=== PATIENT | male | born 2005 | race Caucasian/White ===

== ENCOUNTER 2024-06-10 12:34 | Emergency (ER) | payer BC, SELFPAY ==
[2024-06-10 12:46] VITALS: BP 152/106; PULSE 78; TEMP 36.9; O2SAT 97; BMI 37.5
--- NOTE | 2024-06-10 12:58 | CT_ITS ---
The [address] [address] Patient Name: MICKEY VARGAS MRN: [id number] date: 2005 Sex: M Assigned Patient Location: ER Current Patient Location: ER Accession/Order Number: [id number] Exam Date: 06/10/2024 14:16 Report Date: 06/10/2024 14:26 At the request of: CAROLYN MARROQUIN DO Procedure: CT abdomen pelvis w con CT ABDOMEN AND PELVIS WITH CONTRAST COMPARISON: None CLINICAL DATA: Acute epigastric pain for the past week with nausea. Spiral images were obtained through the abdomen and pelvis following 100 mL of Omnipaque 300. This CT exam was performed using one or more following dose reduction techniques: Automated exposure control, adjustment of the mA and/or kV according to patient size, or use of iterative reconstruction technique. Limited cuts through the lung bases show no contributory findings. No calcified gallstones are visualized. Minimal focal fat is present within the liver near the fossa of the ligamentum teres. The spleen and pancreas show no acute findings. There is a 1 cm right adrenal nodule which may be an adenoma. There are symmetric renal nephrograms, without hydronephrosis. The abdominal aorta is normal caliber. There are tiny retroperitoneal and mesenteric lymph nodes. No free fluid is seen. There is a small amount of fluid within the stomach as well as the duodenum. There is borderline thickening of the wall the proximal duodenum and duodenitis is not excluded. The small bowel loops are normal caliber. A small amount of colonic stool is visualized. There is a tiny umbilical hernia containing fat. The bony structures are intact. Minor degenerative change is seen at the lumbosacral junction. Images through the pelvis show no appendiceal information. There are normal caliber small bowel loops. The distal colon is decompressed. No diverticular disease is noted. The urinary bladder shows no abnormalities for the degree of distention. No ascites is seen. CT/CT abdomen pelvis w con IMPRESSION: NO BOWEL OR URINARY TRACT OBSTRUCTION. BORDERLINE DUODENAL WALL THICKENING. CORRELATION IS RECOMMENDED TO ANY POSSIBILITY OF DUODENITIS. NO OTHER ACUTE FINDINGS. Impression dictated by: Ching Jeronimo M.D.06/10/2024 2:26 PM Dictation Location: [facility] Electronically authenticated by: [id number] Y Date: 06/10/2024 14:26
[2024-06-10] MEDS: 0.9 % SODIUM CHLORIDE 500 ML IV (13:27)
[2024-06-10 13:34] LABS: Basophils Absolute Auto 0.1 10^3/uL (0.0-0.1); Basophils Percent Auto 0.7 % (0.2-2.0); Eosinophils Absolute Auto 0.1 10^3/uL (0.0-0.7); Eosinophils Percent Auto 1.5 % (0.9-7.0); Hematocrit 46.1 % (42.0-54.0); Hemoglobin 16.8 g/dL (14.0-18.0); Immature Granulocytes Abs Auto 0.02 10^3/uL (0.00-0.03); Immature Granulocytes Pct Auto 0.2 % (0.0-0.5); Lymphocytes Absolute Auto 1.2 10^3/uL (1.2-3.8); Lymphocytes Percent Auto 14.1 % (20.5-60.0); Mean Corpuscular HGB Conc 36.4 g/dL (29.9-35.2); Mean Corpuscular Hemoglobin 30.3 pg (25.9-34.0); Mean Corpuscular Volume 83.1 fL (80.0-94.0); Mean Platelet Volume 9.4 fL (9.5-13.5); Monocytes Absolute Auto 0.6 10^3/uL (0.3-0.8); Monocytes Percent Auto 7.6 % (1.7-12.0); Neutrophils Absolute Auto 6.2 10^3/uL (1.4-6.5); Neutrophils Percent Auto 75.9 % (43.0-75.0); Platelet Count 372 10^3/uL (150-450); Red Blood Count 5.55 10^6/uL (4.70-6.10); Red Cell Distribution Width 11.5 % (11.0-15.0); White Blood Count 8.2 10^3/uL (4.0-11.0)
[2024-06-10 13:50] LABS: Influenza Virus A Antigen Negative; Influenza Virus B Antigen Negative; Internal Control Within Normal Limits
[2024-06-10 13:51] LABS: Internal Control Within Normal Limits; SARS-CoV-2 Ag NEGATIVE (NEGATIVE)
[2024-06-10 13:51] LABS: Alanine Aminotransferase 35 U/L (16-63); Albumin Level 4.4 g/dL (3.4-5.0); Alkaline Phosphatase 100 U/L (46-116); Anion Gap 17.1; Aspartate Amino Transferase 21 U/L (15-37); BUN Creatinine Ratio 8.6; Bilirubin Total 0.9 mg/dL (0.2-1.0); Calcium 9.5 mg/dL (8.5-10.1); Carbon Dioxide 26.8 mmol/L (21.0-32.0); Chloride 100 mmol/L (98-107); Estimated GFR (African America >60 (>=60 mL/min/1.73m^2); Estimated GFR (Non-African Ame >60 (>=60 mL/min/1.73m^2); Globulin 4.3 g/dL; Glucose 102 mg/dL (74-106); Potassium 3.9 mmol/L (3.5-5.1); Sodium 140 mmol/L (136-145); Total Protein 8.7 g/dL (6.4-8.2)
--- NOTE | 2024-06-10 14:16 | ED.GENADUL1 ---
HPI HPI - General Adult General Chief complaint: Nausea/Vomiting/Diarrhea Stated complaint: VOMITTING STOMACH PAINS Time Seen by Provider: 06/10/24 12:40 Source: patient Mode of arrival: walk-in Limitations: no limitations History of Present Illness HPI narrative: Patient presents to ED complaining of upper abdominal pain. He states that he has had an epigastric pain for about 5 days. He states last week he went to an urgent care and they said it was most likely gas after doing an x-ray. They told him to Take Gas-X. He has been taking pwyd-see-jkeqkkj medication for constipation and gas since then but has not really been able to have a good bowel movement. He said he had some watery diarrhea come out that was dark. No blood in the stool that he has noticed. No vomiting. He reports decreased appetite. He does not have a history of diabetes or peptic ulcer disease to his knowledge. He has not tried any pvjy-zvv-xemprbq Pepcid. Vital signs stable patient is resting comfortably in the bed in no acute distress. The pain does radiate up into the chest. No fevers. Related Data Previous Rx's ?Medication ?Instructions ?Recorded pantoprazole 40 mg tablet,delayed 40 mg PO DAILY 14 days #14 tabs 06/10/24 release (Protonix) Allergies Allergy/AdvReac Type Severity Reaction Status Date / Time No Known Drug Allergies Allergy Verified 06/10/24 12:50 Opioid HPI Opioid Management Most Recent Opioid Data: Last Pain Scale 4 06/10/24 12:55 06/10/24 Last ED Pain Assessment 06/10/24 12:55 Review of Systems ROS Status of ROS 10 or more systems reviewed and unremarkable except as noted in history and below PFSH PFSH Social History Little interest or pleasure in doing things: not at all Feeling down, depressed, or hopeless: not at all Exam Narrative Exam Narrative: Time Seen: [] Vital Signs: [Per nurse's notes.] General: [Alert] Skin: [Warm, dry, no rash.] Head: [Normocephalic, atraumatic.] Neck: [Supple, trachea midline.] Eye: [Pupils are equal, round and reactive to light, extraocular movements are intact, normal conjunctiva.] Ears, nose, mouth and throat: oral mucosa moist. Cardiovascular: [Regular rate and rhythm, no murmur.] Respiratory: [Lungs are clear to auscultation, respirations are non-labored, breath sounds are equal.] Chest wall: [No tenderness, no deformity.] Gastrointestinal: [Soft, mild epigastric tenderness, non distended, normal bowel sounds.] MSK: 5 out of 5 muscle strength x 4 extremities no calf pain or edema Lymphatics: [No lymphadenopathy.] Psychiatric: [Cooperative, appropriate mood & affect.] Neurological: [Alert and oriented to person, place, time, and situation, no focal neurological deficit observed.] Constitutional Vital Signs, click to edit/add: Last Vital Signs Temp 98.4 F 06/10/24 12:46 Pulse 78 06/10/24 12:46 Resp 18 06/10/24 12:46 BP 152/106 H 06/10/24 12:46 Pulse Ox 97 06/10/24 12:46 O2 Del Method Room Air 06/10/24 12:46 Course Vital Signs Vital signs: Vital Signs Temperature 98.4 F 06/10/24 12:46 Pulse Rate 78 06/10/24 12:46 Respiratory Rate 18 06/10/24 12:46 Blood Pressure 152/106 H 06/10/24 12:46 Pulse Oximetry 97 06/10/24 12:46 Oxygen Delivery Method Room Air 06/10/24 12:46 Temperature 98.4 F 06/10/24 12:46 Pulse Rate 78 06/10/24 12:46 Respiratory Rate 18 06/10/24 12:46 Blood Pressure 152/106 H 06/10/24 12:46 Pulse Oximetry 97 06/10/24 12:46 Oxygen Delivery Method Room Air 06/10/24 12:46 Medical Decision Making [facility] Narrative Medical decision making narrative: Patient's labs are negative for acute findings. Patient does have evidence of possible duodenitis on the CT scan. Patient was given a GI cocktail here to help with the pain. Patient will be started on 2-week course of Protonix. Please call the GI office to schedule a close follow-up appointment. Return to ED if worsening symptoms patient is comfortable with care plan for home Differential Diagnosis Differential Diagnosis: Constipation peptic ulcer disease duodenitis Lab Data Lab results reviewed: Yes I reviewed the patient's lab results Labs: Lab Results 06/10/24 06/10/24 Range/Units 13:10 13:25 WBC 8.2 (4.0-11.0) 10^3/uL RBC 5.55 (4.70-6.10) 10^6/uL Hgb 16.8 (14.0-18.0) g/dL Hct 46.1 (42.0-54.0) % MCV 83.1 (80.0-94.0) fL MCH 30.3 (25.9-34.0) pg MCHC 36.4 H (29.9-35.2) g/dL RDW 11.5 (11.0-15.0) % Plt Count 372 (150-450) 10^3/uL MPV 9.4 L (9.5-13.5) fL Neut % (Auto) 75.9 H (43.0-75.0) % Lymph % (Auto) 14.1 L (20.5-60.0) % [place] % (Auto) 7.6 (1.7-12.0) % Eos % (Auto) 1.5 (0.9-7.0) % Baso % (Auto) 0.7 (0.2-2.0) % Neut # (Auto) 6.2 (1.4-6.5) 10^3/uL Lymph # (Auto) 1.2 (1.2-3.8) 10^3/uL [place] # (Auto) 0.6 (0.3-0.8) 10^3/uL Eos # (Auto) 0.1 (0.0-0.7) 10^3/uL Baso # (Auto) 0.1 (0.0-0.1) 10^3/uL Abs Immat Gran (auto) 0.02 (0.00-0.03) 10^3/uL Imm/Tot Granulo (auto) 0.2 (0.0-0.5) % Sodium 140 (136-145) mmol/L Potassium 3.9 (3.5-5.1) mmol/L Chloride 100 (98-107) mmol/L Carbon Dioxide 26.8 (21.0-32.0) mmol/L Anion Gap 17.1 BUN 9.0 (7.0-18.0) mg/dL Creatinine 1.05 (0.70-1.30) mg/dL Est GFR ( Amer) >60 (>=60 mL/min/1.73m^2) Est GFR (Non-Af Amer) >60 (>=60 mL/min/1.73m^2) BUN/Creatinine Ratio 8.6 Glucose 102 (74-106) mg/dL Calcium 9.5 (8.5-10.1) mg/dL Total Bilirubin 0.9 (0.2-1.0) mg/dL AST 21 (15-37) U/L ALT 35 (16-63) U/L Alkaline Phosphatase 100 (46-116) U/L Total Protein 8.7 H (6.4-8.2) g/dL Albumin 4.4 (3.4-5.0) g/dL Globulin 4.3 g/dL Albumin/Globulin Ratio 1.0 Influenza Type A Ag Negative Influenza Type B Ag Negative SARS-CoV-2 Ag (CV2AG) Negative (NEGATIVE) Imaging Data CT scan - abdomen: Radiologist's impression: ITS Impressions Abdomen/Pelvis CT 06/10/24 12:58 IMPRESSION: NO BOWEL OR URINARY TRACT OBSTRUCTION. BORDERLINE DUODENAL WALL THICKENING. CORRELATION IS RECOMMENDED TO ANY POSSIBILITY OF DUODENITIS. NO OTHER ACUTE FINDINGS. Impression dictated by: Ching Jeronimo M.D.06/10/2024 2:26 PM Dictation Location: [place] [address] Electronically authenticated by: [id number] Y Date: 06/10/2024 14:26 Discharge Plan Discharge Chief Complaint: Nausea/Vomiting/Diarrhea Clinical Impression: Duodenitis Patient Disposition: Home, Self-Care Time of Disposition Decision: 14:37 Condition: Good Mode of Transportation: Private Vehicle Prescriptions / Home Meds: New pantoprazole [Protonix] 40 mg tablet,delayed release (DR/EC) 40 mg PO DAILY 14 Days Qty: 14 0RF Print Language: Greek Instructions: Duodenitis (ED) Referrals: CHRISTY MARTI [Physician] - 1 week Tabby Luong MD [Primary Care Provider] - 1 week
[2024-06-10 15:00] VITALS: BP 153/90; PULSE 77; O2SAT 98
[2024-06-10] MEDS: lidocaine HCL 15 ML, MAG HYDROX/ALUMINUM HYD/SIMETH 30 ML, HYOSCYAMINE SULFATE 0.25 MG PO (15:03)
== END 2024-06-10 15:10 | disposition home or self-care (01) ==
PROVIDERS: Emergency Provider Emergency Medicine; PCP Family Medicine
DX: K29.80 Duodenitis without bleeding (principal)
CPT/HCPCS: 36415; 74177; 80053; 85025; 87804; 87811; 99285; Q9967

== ENCOUNTER 2024-09-22 19:12 | Emergency (ER) | payer OTHER, BC, SELFPAY ==
[2024-09-22 19:17] VITALS: BP 138/88; PULSE 92; TEMP 37.4; O2SAT 100; BMI 38.5
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
[2024-09-22] MEDS: CYCLOBENZAPRINE HCL 10 MG TABLET PO (21:02)
[2024-09-22] MEDS: ACETAMINOPHEN 500 MG TABLET 1000 MG PO (21:02)
== END 2024-09-22 21:11 | disposition home or self-care (01) ==
PROVIDERS: Emergency Provider Student in an Organized Health Care Education/Training Program; PCP Family Medicine
DX: S01.01XA Laceration without foreign body of scalp, initial encounter (principal); S46.811A Strain of other muscles, fascia and tendons at shoulder and upper arm level, right arm, initial encounter; V49.40XA Driver injured in collision with unspecified motor vehicles in traffic accident, initial encounter; W22.11XA Striking against or struck by driver side automobile airbag, initial encounter; M25.511 Pain in right shoulder
CPT/HCPCS: 70450; 72125; 73030; 99285

== ENCOUNTER 2024-12-05 14:04 | Emergency (ER) | payer BC, SELFPAY ==
[2024-12-05] VITALS (16 sets, daily range): BP systolic 126–138; BP diastolic 73–95; PULSE 75; TEMP 36.8; O2SAT 97–100; BMI 38.5
--- OUTSIDE RECORDS SUMMARY | 2024-12-05 14:11 | XMS_ITS | Clinical Summary ---
Author Organization [facility] Address [address] [place] [address] Care Team Providers Care Presentation Designer Name Role Phone Danitza Orantes NP Unavailable [phone] Allergies No known active allergies Medications No known medications Social History Tobacco Use Types Packs/Day Years Used Date Smoking Tobacco: Never Assessed Sex and Gender Information Value Date Recorded Sex Assigned at Not on file Legal Sex Male 9:50 PM EDT Gender Identity Not on file Sexual Orientation Not on file Last Filed Vital Signs Vital Sign Reading Time Taken Comments Blood Pressure 120/82 06/04/2024 1:28 PM EST Pulse 89 06/04/2024 1:28 PM EST Temperature 36.7 C (98 F) 06/04/2024 1:28 PM EST Respiratory Rate - - Oxygen Saturation 98% 06/04/2024 1:28 PM EST Inhaled Oxygen Concentration - - Weight 136 kg (299 lb) 06/04/2024 1:28 PM EST Height 190.5 cm (6' 3 ) 06/26/2021 12:00 PM EDT Body Mass Index - - Plan of Treatment Health Maintenance Due Date Last Done Comments Influenza Vaccine (#1) 2024 Insurance BCBS Care Teams Presentation Designer Relationship Specialty Start Date End Date Danitza Orantes NP [address] [place] [address] PCP - Erlin Holcomb 07/14/24
--- OUTSIDE RECORDS SUMMARY | 2024-12-05 14:12 | XMS_ITS | CCD ---
Author Organization [facility] Inform ion Partnership [facility] Care Team Providers Care Aerospace Manager Name Role Phone DR TABBY BRODY Primary Care Unavailable RONN, DR TABBY Okeefe Attending Unavailable DR TABBY BRODY Admitting Unavailable Mikala MENDIETA Attending Unavailable MD Tabby Brody Primary Care Provider LYSSA Jiménez Attending Provider Connie Jiménez Attending Unavailable Connie Jiménez Admitting Unavailable Tabby Brody Primary Care Unavailable DANITZA ORANTES Attending Unavailable DANITZA ORANTES Referring Unavailable Unavailable Primary Care Provider Unavailkatiana okeefe Medications Current Medications Medication Drug Class(es) Dates Sig (Normalized) Sig (Original) Crutches (1 source) Start: 06-26-2023 Crutches Activ e 0 .Route 1 June 26, 2023 12:00am As directed Problems Active Problems Problem Classification Problem Date Documented Da te Episodic/Chronic Abdominal pain (2 sources) Generalized abdominal pain; Translations: [Generalized abdominal pain] 06-04-2024 Episodic Other bone disease and musculoskeletal deformities (1 source) Osteochondropathy; Translations: [Osteochondropathy , unspecified, unspecified thigh] 06-26-2023 Chronic Other connective tissue disease (4 sources) Pain in right leg; Translations: [PAIN IN RIGHT LEG] Onset: 05-03-2021 Episodic Other connective tissue disease (1 source) Plantar fascial fibromatosis; Translations: [Plantar fascial fibromatosis] 06-26-2023 Episodic Other nutritional; endocrine; and metabolic disorders (1 source) Obese class II; Translations: [Body mass index (BMI) 37.0-37.9, adult] Onset: 10-26-2022 Chronic Other upper respiratory infections (1 source) Acute upper respiratory infection; Translations: [Acute upper respiratory infection, unspecified] Onset: 10-26-2022 Episodic Spondylosis; intervertebral disc disorders; other back problems (1 source) Disorder of right sciatic nerve; Translations: [Sciatica, right side] 06-26-2023 Episodic Sprains and strains (1 source) Sprain of unspecified ligament of right ankle, initial encounter; Translations: [Sprain of ankle, unspecified site] 06-26-2023 Episodic Unclassified (1 source) Pain in right ankle and joints of right foot; Translations: [Pain in right ankle and joints of right foot] Onset: 06-26-2023 Past or Other Problems Problem Classification Problem Date Documented Da te Episodic/Chronic Allergic reactions (1 source) Idiopathic urticaria; Translations: [Idiopathic urticaria] Onset: 10-06-2015 06-26-2023 Episodic Results Test Name Value Interpretation Reference Range Facil ity XR ABDOMEN 2 VIEWon 06-04-19 XR ABDOMEN 2 VIEW TITLE OF EXAM: XR ABDOMEN 2 VIEW REASON FOR EXAM: Abdomen pain/bloating, nausea, constipation. TECHNIQUE: 4 radiographs of the abdomen COMPARISONS: None. FINDINGS: Physiologic quantity and distribution of bowel gas and colonic stool. No abnormal bowel dilation. No appreciable/radiopaqu e urolithiasis. No acute osseous or focal soft tissue abnormality. IMPRESSION: Radiographically normal abdomen. DICTATED ON: 06/04/2024 12:22 PM This report has been electronically signed and approved by the interpreting radiologist. Normal Not Available XR Abdomen Single viewon TITLE OF EXAM: XR ABDOMEN 2 VIEW REASON FOR EXAM: Abdomen pain/bloating, nausea, constipation. TECHNIQUE: 4 radiographs of the abdomen COMPARISONS: None. FINDINGS: Physiologic quantity and distribution of bowel gas and colonic stool. No abnormal bowel dilation. No appreciable/radiopaqu e urolithiasis. No acute osseous or focal soft tissue abnormality. IMPRESSION: Radiographically normal abdomen. DICTATED ON: 06/04/2024 12:22 PM This report has been electronically signed and approved by the interpreting radiologist. Rosalva Quintero MD - 06/04/2024 TITLE OF EXAM: XR ABDOMEN 2 VIEW REASON FOR EXAM: Abdomen pain/bloating, nausea, constipation. TECHNIQUE: 4 radiographs of the abdomen COMPARISONS: None. FINDINGS: Physiologic quantity and distribution of bowel gas and colonic stool. No abnormal bowel dilation. No appreciable/radiopaqu e urolithiasis. No acute osseous or focal soft tissue abnormality. IMPRESSION: Radiographically normal abdomen. DICTATED ON: 06/04/2024 12:22 PM This report has been electronically signed and approved by the interpreting radiologist. [facility] Radiology Study observation (narrative) [facility] [employer] XR Abdomen Single viewOrdere d By: Rosalva Lopez on 06-04-2024 [facility] [employer] Work Phone: XR ankle RT min 3V*on 2023 XR ankle RT min 3V* [facility] [place] [address] [place] [address] XRay Report Signed Patient: Mickey Vargas MR#: [id number] : 2005 Acct:[id number] Age/Sex: 18 / M ADM Date: 06/26/23 Loc: XDUCLY Room: Type: [facility] Attending Dr: Connie OMALLEY Copies to: LYSSA Person Ordering Provider: LYSSA Person Date of Service: 06/26/23 XR/XR ankle RT min 3V*: RIGHT ANKLE INJURY RIGHT ANKLE - 3 views CLINICAL DATA: Patient jumped off the back of truck yesterday and twisted right ankle. Patient has pain and swelling. COMPARISON: None AP, lateral and oblique views were obtained. There is no evidence of fracture or dislocation. The talar dome is intact. Diffuse soft tissue swelling is present, greater laterally. XR/XR ankle RT min 3V* IMPRESSION: NO ACUTE BONY INJURY. Impression dictated by: Ching Jeronimo M.D.06/26/2023 12:03 PM Dictation Location: [place] [address] Transcribed By: [facility] 06/26/23 1203 Dictated By: Ching Jeronimo MD 06/26/23 1159 Signed By: 06/26/23 1203 [facility] Ambulatory Visit Summaryon 0 10-26-2022 Ambulatory Visit Summary MICKEY VARGAS :2005 Visit Date:10/26/2022 Ambulatory Visit Instructions Your Diagnosis Viral URI BMI 37.0-37.9, adult Your Care Team Attending Physician - Mikala MENDIETA CNP Discharge Vitals Temperature (Oral) 37 ?C Heart Rate (Peripheral) 88 Blood Pressure 116/68 Height 188 cm Height 74 in Weight 133 kg Weight 292.6 lb BMI 37.63 Medications and Immunizations Administered Not Given SARS-CoV-2 mRNA (tozinameran 5y-11y) vac, Parent Or Guardian Refuses Allergies No Known Allergies No Known Medication Allergies Education Materials BMI for Adults What is BMI? Body mass index (BMI) is a number that is calculated from a person's weight and height. BMI can help estimate how much of a person's weight is composed of fat. BMI does not measure body fat directly. Rather, it is an alternative to procedures that directly measure body fat, which can be difficult and expensive. BMI can help identify people who may be at higher risk for certain medical problems. What are BMI measurements used for? BMI is used as a screening tool to identify possible weight problems. It helps determine whether a person is obese, overweight, a healthy weight, or underweight. BMI is useful for: ? Identifying a weight problem that may be related to a medical condition or may increase the risk for medical problems. ? Promoting changes, such as changes in diet and exercise, to help reach a healthy weight. BMI screening can be repeated to see if these changes are working. How is BMI calculated? BMI involves measuring your weight in relation to your height. Both height and weight are measured, and the BMI is calculated from those numbers. This can be done either in [place] ([place] or metric measurements. Note that charts and online BMI calculators are available to help you find your BMI quickly and easily without having to do these calculations yourself. To calculate your BMI in [place] measurements: 1. Measure your weight in pounds (lb). 2. Multiply the number of pounds by 703. ? For example, for a person who weighs 180 lb, multiply that number by 703, which equals 126,540. 3. Measure your height in inches. Then multiply that number by itself to get a measurement called inches squared. ? For example, for a person who is 70 inches tall, the inches squared measurement is 70 inches x 70 inches, which equals 4,900 inches squared. 4. Divide the total from step 2 (number of lb x 703) by the total from step 3 (inches squared): 126,540 ? 4,900 = 25.8. This is your BMI. To calculate your BMI in metric measurements: 1. Measure your weight in kilograms (kg). 2. Measure your height in meters (m). Then multiply that number by itself to get a measurement called meters squared. ? For example, for a person who is 1.75 m tall, the meters squared measurement is 1.75 m x 1.75 m, which is equal to 3.1 meters squared. 3. Divide the number of kilograms (your weight) by the meters squared number. In this example: 70 ? 3.1 = 22.6. This is your BMI. What do the results mean? BMI charts are used to identify whether you are underweight, normal weight, overweight, or obese. The following guidelines will be used: ? Underweight: BMI less than 18.5. ? Normal weight: BMI between 18.5 and 24.9. ? Overweight: BMI between 25 and 29.9. ? Obese: BMI of 30 or above. Keep these notes in mind: ? Weight includes both fat and muscle, so someone with a muscular build, such as an athlete, may have a BMI that is higher than 24.9. In cases like these, BMI is not an accurate measure of body fat. ? To determine if excess body fat is the cause of a BMI of 25 or higher, further assessments may need to be done by a health care provider. ? BMI is usually interpreted in the same way for men and women. Where to find more information For more information about BMI, including tools to quickly calculate your BMI, go to these websites: ? Centers for Disease Control and Prevention: www.cdc.gov ? [place] Heart Association: www.heart.org ? National Heart, Lung, and Blood [place]: www.nhlbi.nih.gov Summary ? Body mass index (BMI) is a number that is calculated from a person's weight and height. ? BMI may help estimate how much of a person's weight is composed of fat. BMI can help identify those who may be at higher risk for certain medical problems. ? BMI can be measured using [place] measurements or metric measurements. ? BMI charts are used to identify whether you are underweight, normal weight, overweight, or obese. This information is not intended to replace advice given to you by your health care provider. Make sure you discuss any questions you have with your health care provider. Document Revised: 12/23/2019 Document Reviewed: 10/30/2019 [employer] Patient Education ? 2022 [employer]. Viral Respiratory Infection A (more content not included)... 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 Patient presents in office for concern of shortness of breath, nasal congestion, nasal drainage. Symptoms x2 days. Denies ear pain, sore throat, significant cough. Denies chest pain or palpitations. Denies history of asthma. Denies tobacco use. Does currently vape. Denies recent fevers or chills. Denies body aches or fatigue. Has had mild headache on and off. Denies GI symptoms. Denies known COVID exposure. Patient has been using ibuprofen as needed with minimal improvement. Review of Systems PHQ Score Initial Depression Screen Score: 0 Physical Exam Vitals & Measurements T: 37 ?C(Oral) HR: 88(Peripheral) BP: 116/68 SpO2: 97% HT: 74 in HT: 188 cm WT: 133 kg WT: 292.6 lb BMI: 37.63 General: Obese, pleasant adult male in no acute distress Ears: No deformity or lesion of external ear. Canals and TM appear normal bilaterally. TM?s intact, not inflamed, with normal light reflex. Hearing grossly normal to conversational speech, mild cerumen bilaterally Nose: Moderate nasal mucosa inflammation and edema, mild clear rhinorrhea Mouth: Mild pharyngeal inflammation. No tonsillar enlargement, no exudate, no petechiae, no palatal inflammation. Uvula midline. Postnasal drip present. Neck: no adenopathy Lungs: clear to auscultation throughout, no wheezing, no rales. No respiratory distress, Cardio: regular rate and rhythm, no murmur Mental Status: Alert and oriented x3. Normal mood and affect Assessment/Plan 1. Viral URI (J06.9: Acute upper respiratory infection, unspecified) Discussed with patient lungs are clear. No signs of any respiratory distress. Pulse ox is stable. Discussed exam and hx are consistent with viral illness. Advised of typical duration. Discussed antibiotics unfortunately do not treat viral illnesses, it will take time to run course- usually 7-14 days. Fluids/rest encouraged, PRN tylenol/ibuprofen for any pain. May use mucinex, claritin for symptomatic tx. Follow up with PCP if not improving over next 7 days or significantly worsening symptoms. Patient and/or parent verbalized understanding of tx plan. Discussed vaping can cause somewhat unknown side effects. Also can make upper respiratory symptoms worse when you are ill. Recommend he consider quitting. Discussed option of COVID testing, patient declines. 2. BMI 37.0-37.9, adult (Z68.37: Body mass index [BMI] 37.0-37.9, adult) The standard range for ages 18 and older is >=18.5 and < 25 kg/m2. Your BMI today was above this range, this falls in the overweight to obese category and there are medical benefits to weight loss. We can offer counselling, referral, and/or medical support in addressing this problem. Your BMI and weight management will be followed at subsequent visits. Follow-up No qualifying data available Patient Education BMI for Adults Viral Respiratory Infection, Gxuf-Bh-Sqyx Problem List/Past Medical History Ongoing No chronic problems Historical No qualifying data Medications No active medications Allergies No Known Allergies No Known Medication Allergies Social History Tobacco - Medium Risk, 10/26/2022 Never (less than 100 in lifetime) Tobacco Use:. Current vaping or e-cigarette use Smokeless Tobacco Use:. Vaping, Ready to change: No. Household tobacco concerns: No. Yes, 10/26/2022 Immunizations Vaccine Date Status Comments SARS-CoV-2 mRNA (totaylornameran 5y-11y) vac - Not Given Parent Or Guardian Refuses meningococcal conjugate vaccine 12/26/2021 Recorded diphtheria/pertussis, acel/tetanus adult 10/19/2016 Recorded meningococcal conjugate vaccine 10/19/2016 Recorded varicella virus vaccine 03/21/2010 Recorded poliovirus vaccine, inactivated 12/08/2009 Recorded measles/mumps/rubella virus vaccine 12/08/2009 Recorded hepatitis A pediatric vaccine 12/08/2009 Recorded diphtheria/pertussis, acel/tetanus ped 12/08/2009 Recorded varicella virus vaccine 02/25/2006 Recorded measles/mumps/rubella virus vaccine 02/25/2006 Recorded poliovirus vaccine, inactivated 06/19/2005 Recorded diphtheria/pertussis, acel/tetanus ped 05/30/2005 Recorded poliovirus vaccine, inactivated 2004 Recorded hepatitis B pediatric vaccine 2004 Recorded diphtheria/pertussis, acel/tetanus ped 2004 Recorded poliovirus vaccine, inactivated 2004 Recorded hepatitis B pediatric vaccine 2004 Recorded diphtheria/pertussis, acel/tetanus ped 2004 Recorded hepatitis B pediatric vaccine 2004 Recorded diphtheria/pertussis, acel/tetanus ped 06/20/19 (more content not included)... Normal [facility] Comment on above: Result Comment: Elec tronically Signed By: Mikala MENDIETA CNP\.br\Date and Time Signed: 10/26/22 14:09 EDT Patient Educationon 10-27-19 Patient Education Infectious Disease Viral Respiratory Infection A viral respiratory infection is an illness that affects parts of the body that are used for breathing. These include the lungs, nose, and throat. It is caused by a germ called a virus. Some examples of this kind of infection are: ? A cold. ? The flu (influenza). ? A respiratory syncytial virus (RSV) infection. What are the causes? This condition is caused by a virus. It spreads from person to person. You can get the virus if: ? You breathe in droplets from someone who is sick. ? You come in contact with people who are sick. ? You touch mucus or other fluid from a person who is sick. What are the signs or symptoms? Symptoms of this condition include: ? A stuffy or runny nose. ? A sore throat. ? A cough. ? Shortness of breath. ? Trouble breathing. ? Yellow or green fluid in the nose. Other symptoms may include: ? A fever. ? Sweating or chills. ? Tiredness (fatigue). ? Achy muscles. ? A headache. How is this treated? This condition may be treated with: ? Medicines that treat viruses. ? Medicines that make it easy to breathe. ? Medicines that are sprayed into the nose. ? Acetaminophen or NSAIDs, such as ibuprofen, to treat fever. Follow these instructions at home: Managing pain and congestion ? Take jbbn-erk-sdslmza and prescription medicines only as told by your doctor. ? If you have a sore throat, gargle with salt water. Do this 3?4 times a day or as needed. ? To make salt water, dissolve ??1 tsp (3?6 g) of salt in 1 cup (237 mL) of warm water. Make sure that all the salt dissolves. ? Use nose drops made from salt water. This helps with stuffiness (congestion). It also helps soften the skin around your nose. ? Take 2 tsp (10 mL) of honey at bedtime to lessen coughing at night. ? Do not give honey to children who are younger than 1 year old. ? Drink enough fluid to keep your pee (urine) pale yellow. General instructions ? Rest as much as possible. ? Do not drink alcohol. ? Do not smoke or use any products that contain nicotine or tobacco. If you need help quitting, ask your doctor. ? Keep all follow-up visits. How is this prevented? ? Get a flu shot every year. Ask your doctor when you should get your flu shot. ? Do not let other people get your germs. If you are sick: ? Wash your hands with soap and water often. Wash your hands after you cough or sneeze. Wash hands for at least 20 seconds. If you cannot use soap and water, use hand ecommerce analyst. ? Cover your mouth when you cough. Cover your nose and mouth when you sneeze. ? Do not share cups or eating utensils. ? Clean commonly used objects often. Clean commonly touched surfaces. ? Stay home from work or school. ? Avoid contact with people who are sick during cold and flu season. This is in fall and winter. Get help if: ? Your symptoms last for 10 days or longer. ? Your symptoms get worse over time. ? You have very bad pain in your face or forehead. ? Parts of your jaw or neck get very swollen. ? You have shortness of breath. Get help right away if: ? You feel pain or pressure in your chest. ? You have trouble breathing. ? You faint or feel like you will faint. ? You keep vomiting and it gets worse. ? You feel confused. These symptoms may be an emergency. Get help right away. Call your local emergency services (911 in the [place] ? Do not wait to see if the symptoms will go away. ? Do not drive yourself to the hospital. Summary ? A viral respiratory infection is an illness that affects parts of the body that are used for breathing. ? Examples of this illness include a cold, the flu, and a respiratory syncytial virus (RSV) infection. ? The infection can cause a runny nose, cough, sore throat, and fever. ? Follow what your doctor tells you about taking medicines, drinking lots of fluid, washing your hands, resting at home, and avoiding people who are sick. This information is not intended to replace advice given to you by your health care provider. Make sure you discuss any questions you have with your health care provider. Document Revised: 07/06/2021 Document Reviewed: 07/06/2021 [employer] Patient Education ? 2022 [employer]. Nutrition BMI for Adults What is BMI? Body mass index (BMI) is a number that is calculated from a person's weight and height. BMI can help estimate how much of a person's weight is composed of fat. BMI does not measure body fat directly. Rather, it is an alternative to procedures that directly measure body fat, which can be difficult and expensive. BMI can help identify people who may be at higher risk for certain medical problems. What are BMI measurements used for? BMI is used as a screening tool to identify possible weight problems. It helps determine whether a person is obese, overweight, a healthy weight, or under (more content not included)... Normal [facility] Patient Letter FTon 2022 Patient Letter [facility] [place] [address] [address] [id number] October 26, 2022 MICKEY VARGAS [address] [place] [id number] : 2005 Please excuse MICKEY VARGAS from work . Date and/or Time of Absence: From: 10/26/22 May return to work on: 10/29/22 Restrictions: None Comments: Please excuse due to an acute illness. Provider Signature: Mikala Mendieta, PROJECT STRUCTURAL ENGINEER-ELECTRONICS TEST ENGINEER, BRANCH STORE MANAGER-C Nurse Practitioner [address] [place] [address] [place] [address] Normal [facility] Vital Signs Date Time Vital Sign Value Performing Clinician Facility 06-04-2024 13:28-0500 Body temperature 98.01 [degF] Danitza Orantes PHARMACEUTICAL PROCESS ENGINEER Work Phone: [facility] 06-04-2024 13:28-0500 Body weight 135.63 kg Danitza Orantes PHARMACEUTICAL PROCESS ENGINEER Work Phone: [facility] 06-04-2024 13:28-0500 Diastolic blood pressure 82 mm[Hg] Danitza Orantes PHARMACEUTICAL PROCESS ENGINEER Work Phone: [facility] 06-04-2024 13:28-0500 Heart rate 89 /min Danitza Orantes PHARMACEUTICAL PROCESS ENGINEER Work Phone: [facility] 06-04-2024 13:28-0500 SaO2% (BldA) [Mass fraction] 98 % Danitza Orantes PHARMACEUTICAL PROCESS ENGINEER Work Phone: [facility] 06-04-2024 13:28-0500 Systolic blood pressure 120 mm[Hg] Danitza Orantes PHARMACEUTICAL PROCESS ENGINEER Work Phone: [facility] 06-26-2023 11:09-0400 Body height 185.42 cm MD Tabby Brody Work Phone: [facility] 06-26-2023 11:09-0400 Body mass index (BMI) [Percentile] Per age and sex 99.4 % MD Tabby Brody Work Phone: [facility] 06-26-2023 11:09-0400 Body mass index (BMI) [Ratio] 37.8 kg/m2 MD Tabby Brody Work Phone: [facility] 06-26-2023 11:09-0400 Body temperature 98.6 [degF] MD Tabby Brody Work Phone: [facility] 06-26-2023 11:09-0400 Body weight 130.18 kg MD Tabby Brody Work Phone: [facility] 06-26-2023 11:09-0400 Diastolic blood pressure 85 mm[Hg] MD Tabby Brody Work Phone: [facility] 06-26-2023 11:09-0400 Heart rate 90 /min MD Tabby Brody Work Phone: [facility] 06-26-2023 11:09-0400 Respiratory rate 18 /min MD Tabby Brdoy Work Phone: [facility] 06-26-2023 11:09-0400 SaO2% (BldA) [Mass fraction] 97 % MD Tabby Brody Work Phone: [facility] 06-26-2023 11:09-0400 Systolic blood pressure 136 mm[Hg] MD Tabby Brody Work Phone: [facility] 10-26-2022 13:34-0400 Blood Pressure Location Mikala MENDIETA [facility] 10-26-2022 13:34-0400 Body temperature 98.6 [degF] Mikala MENDIETA [facility] 10-26-2022 13:34-0400 bodymassindex 2.55 Mikala MENDIETA [facility] Comment on above: Result Comment: ^~:!ZScore [facility] 10-26-2022 13:34-0400 Diastolic blood pressure 68 mm[Hg] Mikala MENDIETA [facility] 10-26-2022 13:34-0400 Heart rate 88 /min Mikala MENDIETA [facility] 10-26-2022 13:34-0400 Height/Length Percentile 94.95 Mikala MENDIETA [facility] Comment on above: Result Comment: ^~:!Percentile Source -[facility] 10-26-2022 13:34-0400 Height/Length Z-Score 1.64 Mikala MENDIETA [facility] Comment on above: Result Comment: ^~:!ZScore [facility] 10-26-2022 13:34-0400 SaO2% (BldA) [Mass fraction] 97 % Mikala MENDIETA [facility] 10-26-2022 13:34-0400 Systolic blood pressure 116 mm[Hg] Mikala MENDIETA [facility] 10-26-2022 13:34-0400 weight 2.97 Mikala MENDIETA [facility] Comment on above: Result Comment: ^~:!ZScore [facility] 10-26-2022 13:34-0400 Weight Percentile 99.85 % Mikala MENDIETA [facility] Comment on above: Result Comment: ^~:!Percentile Source -C DC Encounters Encounter Date Encounter Type Care Provider Facility Start: 06-04-2024 End: 06-04-2024 Office outpatient new 45 minutes Danitza Orantes PHARMACEUTICAL PROCESS ENGINEER Work Phone: [facility] Comment on above: Generalized abdomina l pain (Primary Dx) Start: 06-04-2024 End: 06-04-2024 ambulatory DANITZA ORANTES Not Available Start: 06-26-2023 End: 06-26-2023 ambulatory Connie Jiménez Facility:[facility] Start: 06-26-2023 End: 06-26-2023 ambulatory MD Tabby Brody Work Phone: [facility] Work Phone: Start: 06-26-2023 End: 06-26-2023 Patient encounter procedure MD Tabby Brody Work Phone: [facility] Work Phone: Start: 10-26-2022 End: 10-27-2022 ambulatory Mikala MENDIETA Facility: [facility] Start: 10-26-2022 End: 10-26-2022 Patient encounter procedure Mikala MENDIETA [facility] Start: 05-03-2021 End: 06-28-[address] TABBY BRODY Facility: Procedures Date Procedure Procedure Detail Performing Clinician Start: 06-04-2024 Radiologic exam abdo men 2 views Danitza Orantes NP Work Phone: Start: 06-26-2023 X-ray of right ankle MD Tabby Brody Work Phone: Plan of Treatment Date Care Activity Detail Author XR Ankle - right GE 3 Views [facility] Immunizations Immunization Date Immunization Notes Care Provider Fa cility 12-26-2021 meningococcal ACWY vaccine, unspecified formulation Mikala MENDIETA [facility] 12-26-2021 meningococcal B, unspecified formulation MD Tabby Brody Work Phone: [facility] 10-19-2016 diphtheria, tetanus toxoids and acellular pertussis vaccine, unspecified formulation MD Tabby Brody Work Phone: [facility] 10-19-2016 meningococcal ACWY vaccine, unspecified formulation Mikala MENDIETA [facility] 10-19-2016 meningococcal oligosaccharide (groups A, C, Y and W-135) diphtheria toxoid conjugate vaccine (MCV4O) MD Tabby Brody Work Phone: [facility] 10-19-2016 tetanus toxoid, redu rebecca diphtheria toxoid, and acellular pertussis vaccine, adsorbed Mikala MENDIETA [facility] 03-21-2010 varicella virus vaccine Chicho MENDIETA [facility] 12-08-2009 diphtheria, tetanus toxoids and acellular pertussis vaccine Mikala MENDIETA [facility] 12-08-2009 hepatitis A vaccine, unspecified formulation Mikala MENDIETA [facility] 12-08-2009 measles, mumps and rubella virus vaccine Mikala MENDIETA [facility] 12-08-2009 poliovirus vaccine, unspecified formulation Mikala MENDIETA [facility] 02-25-2006 measles, mumps and rubella virus vaccine Mikala MENDIETA [facility] 02-25-2006 varicella virus vaccine Chicho MENDIETA [facility] 06-19-2005 poliovirus vaccine, unspecified formulation Mikala MENDIETA [facility] 05-30-2005 diphtheria, tetanus toxoids and acellular pertussis vaccine Mikala MENDIETA [facility] 2004 diphtheria, tetanus toxoids and acellular pertussis vaccine Mikala MENDIETA [facility] 2004 hepatitis B vaccine, pediatric or pediatric/adolescent dosage Mikala HILLLEY [facility] 2004 poliovirus vaccine, unspecified formulation Mikala HILLLEY [facility] 2004 diphtheria, tetanus toxoids and acellular pertussis vaccine Mikala HILLLEY [facility] 2004 hepatitis B vaccine, pediatric or pediatric/adolescent dosage Mikala GAYATRI [facility] 2004 poliovirus vaccine, unspecified formulation Mikala MENDIETA [facility] 2004 diphtheria, tetanus toxoids and acellular pertussis vaccine Mikala MENDIETA [facility] 2004 hepatitis B vaccine, pediatric or pediatric/adolescent dosage Mikala MENDIETA [facility] 2004 hepatitis B vaccine, pediatric or pediatric/adolescent dosage Mikala MENDIETA [facility] NEGATED: Highlighted row has not occurred!10-26-2022 SARS-CoV-2 mRNA (tozinameran 5y-11y) vaccine Mikala MENDIETA [facility] Payers Date Payer Category Payer Self-pay [id number] 2018 [facility] [id number] 2004 Unknown [id number] 2004 Unknown [id number] 2004 Unknown [id number] 1977 Unknown [id number] 1959 Unknown [id number] Unknown [id number] Social History Date Type Detail Facility Start: 10-26-2022 Tobacco smoking status Never smoked tobacco (finding) [facility] Sex Assigned At Male [facility] Start: 06-26-2023 Tobacco smoking status NHIS Smoker (finding) [facility] Start: 2004 Sex Assigned At Male F [facility] Tobacco smoking status NHIS Tobacco smoking consumption unknown [facility] Start: 2004 Sex assigned at Not on file [facility] Functional Status Date Assessment Result Facility 10-26-2022 Functional Status N/A [facility] History of Present illness Narrative 06-04-2024 Danitza Orantes, CHARLES - 06/04/2024 1:25 PM EST Note Date & Type Note Facility 06-04-2024 History of Presen t illness Narrative Images from the original note were not included. [address] , [address] [facility], [address] P: [phone] F: [phone] HPI Historian of HPI: patient Mickey Vargas is a 19 y.o. male who presents today to the Urgent Care with the following complaints and denials which have been present for 4 day(s) C/O Denies Symptom Comments [x] [] Abd Pain Location: midepigastric region [x] [] Nausea [] [x] Vomiting [x] [] Loss of appetite [] [x] Fever [] [x] Chills [x] [] Radiation of pain [x] [] OTC Medication use [x] [] PMHx of Abd issues constipation Additional Comments: Pt reports when pain first started it was all in ,y left shoulder and into my back, down my stomach. Pt reports las normal BM was 4 days ago. Pt states he had a very small BM today. Pt took OTC Milk of Mag and used an enema with no results. Pt states he is unsure if he used the enema correctly. Pt c/o nausea, no vomiting. Pt states it feels like indigestion . Pt denies urinary symptoms at this time. Pt c/o abdomen feeling kind of bloated, and non-tender at this time. ROS A complete system ROS was performed and negative aside from the pertinent positives noted in the HPI and PE. PHYSICAL EXAM Examination General Examination: General Examination: in no acute distress, well developed, well nourished Head: normocephalic, atraumatic Heart: S1, S2 normal, regular rate and rhythm, no S3, S4, no murmurs, rubs, gallops Lungs: clear anteriorly and posteriorly, clear to auscultation bilaterally, good air movement, no wheezes, rales, rhonchi Chest: normal shape and expansion, normal anteroposterior (AP) diameter Abdomen: soft, nontender, nondistended, no guarding or rigidity, no hepatosplenomegaly, no hernias present, no masses palpable, no organomegaly, no rebound tenderness Psych: alert, oriented TREATMENT PLAN 1. Generalized abdominal pain (Primary) No peritoneal s/s. STAT abd xray obtained; prelim interp pos for moderate air and stool In colon. Gas ex as directed. OTC glycerin supp x1. [employer] foods push fluids. Immediate eval if new, worsening or warning s/s otherwise must follow up with PCP if sx not resolving over next 24-48 hours. Note for work provided x2 days. - XR ABDOMEN 2 VIEW documented in this encounter [facility] Discharge instructions 10-26-2022 Note Date & Type Note Facility 10-26-2022 Hospital Discharg e instructions Patient Education 10/26/2022 14:08:49 BMI for Adults BMI for Adults What is BMI? Body mass index (BMI) is a number that is calculated from a person's weight and height. BMI can help estimate how much of a person's weight is composed of fat. BMI does not measure body fat directly. Rather, it is an alternative to procedures that directly measure body fat, which can be difficult and expensive. BMI can help identify people who may be at higher risk for certain medical problems. What are BMI measurements used for? BMI is used as a screening tool to identify possible weight problems. It helps determine whether a person is obese, overweight, a healthy weight, or underweight. BMI is useful for: Identifying a weight problem that may be related to a medical condition or may increase the risk for medical problems. Promoting changes, such as changes in diet and exercise, to help reach a healthy weight. BMI screening can be repeated to see if these changes are working. How is BMI calculated? BMI involves measuring your weight in relation to your height. Both height and weight are measured, and the BMI is calculated from those numbers. This can be done either in [place] ([place] or metric measurements. Note that charts and online BMI calculators are available to help you find your BMI quickly and easily without having to do these calculations yourself. To calculate your BMI in [place] measurements: 1.Measure your weight in pounds (lb). 2.Multiply the number of pounds by 703. For example, for a person who weighs 180 lb, multiply that number by 703, which equals 126,540. 3.Measure your height in inches. Then multiply that number by itself to get a measurement called inches squared. For example, for a person who is 70 inches tall, the inches squared measurement is 70 inches x 70 inches, which equals 4,900 inches squared. 4.Divide the total from step 2 (number of lb x 703) by the total from step 3 (inches squared): 126,540 4,900 = 25.8. This is your BMI. To calculate your BMI in metric measurements: 1.Measure your weight in kilograms (kg). 2.Measure your height in meters (m). Then multiply that number by itself to get a measurement called meters squared. For example, for a person who is 1.75 m tall, the meters squared measurement is 1.75 m x 1.75 m, which is equal to 3.1 meters squared. 3.Divide the number of kilograms (your weight) by the meters squared number. In this example: 70 3.1 = 22.6. This is your BMI. What do the results mean? BMI charts are used to identify whether you are underweight, normal weight, overweight, or obese. The following guidelines will be used: Underweight: BMI less than 18.5. Normal weight: BMI between 18.5 and 24.9. Overweight: BMI between 25 and 29.9. Obese: BMI of 30 or above. Keep these notes in mind: Weight includes both fat and muscle, so someone with a muscular build, such as an athlete, may have a BMI that is higher than 24.9. In cases like these, BMI is not an accurate measure of body fat. To determine if excess body fat is the cause of a BMI of 25 or higher, further assessments may need to be done by a health care provider. BMI is usually interpreted in the same way for men and women. Where to find more information For more information about BMI, including tools to quickly calculate your BMI, go to these websites: Centers for Disease Control and Prevention: www.cdc.gov [place] [employer]: www.heart.org National Heart, Lung, and Blood [place]: www.nhlbi.nih.gov Summary Body mass index (BMI) is a number that is calculated from a person's weight and height. BMI may help estimate how much of a person's weight is composed of fat. BMI can help identify those who may be at higher risk for certain medical problems. BMI can be measured using [place] measurements or metric measurements. BMI charts are used to identify whether you are underweight, normal weight, overweight, or obese. This information is not intended to replace advice given to you by your health care provider. Make sure you discuss any questions you have with your health care provider. Document Revised: 12/23/2019 Document Reviewed: 10/30/2019 [employer] Patient Education 2022 [employer]. 10/26/2022 14:08:47 Viral Respiratory Infection, Vavc-Ls-Pkhq Viral Respiratory Infection A viral respiratory infection is an illness that affects parts of the body that are used for breathing. These include the lungs, nose, and throat. It is caused by a germ called a virus. Some examples of this kind of infection are: A cold. The flu (influenza). A respiratory syncytial virus (RSV) infection. What are the causes? This condition is caused by a virus. It spreads from person to person. You can get the virus if: You breathe in droplets from someone who is sick. You come in contact with people who are sick. You touch mucus or other fluid from a person who is sick. What are the signs or symptoms? Symptoms of this condition include: A stuffy or runny nose. A sore throat. A cough. Shortness of breath. Trouble breathing. Yellow or green fluid in the nose. Other symptoms may include: A fever. Sweating or chills. Tiredness (fatigue). Achy muscles. A headache. How is this treated? This condition may be treated with: Medicines that treat viruses. Medicines that make it easy to breathe. Medicines that are sprayed into the nose. Acetaminophen or NSAIDs, such as ibuprofen, to treat fever. Follow these instructions at home: Managing pain and congestion Take lprp-avg-spvtpxy and prescription medicines only as told by your doctor. If you have a sore throat, gargle with salt water. Do this 3 4 times a day or as needed. ?To make salt water, dissolve 1 tsp (3 6 g) of salt in 1 cup (237 mL) of warm water. Make sure that all the salt dissolves. Use nose drops made from salt water. This helps with stuffiness (congestion). It also helps soften the skin around your nose. Take 2 tsp (10 mL) of honey at bedtime to lessen coughing at night. ?Do not give honey to children who are younger than 1 year old. Drink enough fluid to keep your pee (urine) pale yellow. General instructions Rest as much as possible. Do not drink alcohol. Do not smoke or use any products that contain nicotine or tobacco. If you need help quitting, ask your doctor. Keep all follow-up visits. How is this prevented? Get a flu shot every year. Ask your doctor when you should get your flu shot. Do not let other people get your germs. If you are sick: ?Wash your hands with soap and water often. Wash your hands after you cough or sneeze. Wash hands for at least 20 seconds. If you cannot use soap and water, use hand ecommerce analyst. ?Cover your mouth when you cough. Cover your nose and mouth when you sneeze. ?Do not share cups or eating utensils. ?Clean commonly used objects often. Clean commonly touched surfaces. ?Stay home from work or school. Avoid contact with people who are sick during cold and flu season. This is in fall and winter. Get help if: Your symptoms last for 10 days or longer. Your symptoms get worse over time. You have very bad pain in your face or forehead. Parts of your jaw or neck get very swollen. You have shortness of breath. Get help right away if: You feel pain or pressure in your chest. You have trouble breathing. You faint or feel like you will faint. You keep vomiting and it gets worse. You feel confused. These symptoms may be an emergency. Get help right away. Call your local emergency services (911 in the [place] Do not wait to see if the symptoms will go away. Do not drive yourself to the hospital. Summary A viral respiratory infection is an illness that affects parts of the body that are used for breathing. Examples of this illness include a cold, the flu, and a respiratory syncytial virus (RSV) infection. The infection can cause a runny nose, cough, sore throat, and fever. Follow what your doctor tells you about taking medicines, drinking lots of fluid, washing your hands, resting at home, and avoiding people who are sick. This information is not intended to replace advice given to you by your health care provider. Make sure you discuss any questions you have with your health care provider. Document Revised: 07/06/2021 Document Reviewed: 07/06/2021 [employer] Patient Education 2022 [employer]. [facility] Evaluation + Plan note Note Date & Type Note Facility Evaluation + Plan note No data available for this section [facility] Evaluation note Note Date & Type Note Facility Evaluation note Diagnosis Onset Date Right ankle sprain noneactiv e [facility] Work Phone: Evaluation note Note Date & Type Note Facility Evaluation note Diagnosis Generalized abdominal pain- Primary Abdominal pain, generalized documented in this encounter [facility] Progress note Note Date & Type Note Facility Progress note No data available for this section [facility] Summary Purpose Family History Relationship Condition Age at Onset Recorded Date/T jaz father Diabetes mellitus Unknown Advance Directives Advance Directive Response Recorded Date/ Time Advance Directives No June 25, 024 10:54am Chief Complaint and Reason for Visit Chief Complaint Right ankle pain wit h injury Reason for Visit Right ankle sprain Additional Source Comments (unrecognized sect ion and content) No Status Records FoundNo Status Records FoundNo Status Records FoundNo Status Records Found INFORMATION SOURCE (unrecogn ized section and content) DATE CREATED AUTHOR 07/18/2021 [facility] DATE CREATED AUTHOR AUTHOR'S ORGANIZ ATION 10/27/2022 Shaun Anton [facility] DATE CREATED AUTHOR AUTHOR'S ORGANIZ ATION 07/05/2023 [facility] DATE CREATED AUTHOR AUTHOR'S ORGANIZ ATION 06/08/2024 [facility] [employer] Care Teams (unrecognized sec tion and content) Team Status: Active Member Role Status Dates Tabby Brody MD Primary Care Provider Active Team Status: Inactive Member Role Status Dates Tabby Brody MD Primary Care Provider Active Start: June 26, 2023 End: June 26, 2023 ONEIDA ClaireC Attending Provider Active S tart: June 26, 2023 End: June 26, 2023 Goals (unrecognized section and content) Goals may be documented in a n alternate section FOR RECORDS PERTAINING TO PATIENTS WHO ARE OR HAVE BEEN ENROLLED IN A CHEMICAL DEPENDENCY/SUBSTANCEABUSE PROGRAM, SOME INFORMATION MAY BE OMITTED. This clinical summary was aggregated from multiple sources. Caution should be exercised in using it in the provision of clinical care. This summary normalizes information from multiple sources, and as a consequence, information in this document may materially change the coding, format and clinical context of patient data. In addition, data may be omitted in some cases. CLINICAL DECISIONS SHOULD BE BASED ON THE PRIMARY CLINICAL RECORDS. [facility] [employer] provides no warranty or guarantee of the accuracy or completeness of information in this document.
[2024-12-05 15:19] LABS: Glucose Urine UA NEGATIVE (NEGATIVE)
[2024-12-05 15:28] LABS: Cast Seen? NONE SEEN #/LPF (NONE SEEN); Crystals Seen? None Seen #/HPF (None Seen)
[2024-12-05 15:30] LABS: Hematocrit 44.6 % (42.0-54.0); Hemoglobin 16.2 g/dL (14.0-18.0); Immature Granulocytes Abs Auto 0.04 10^3/uL (0.00-0.03); Immature Granulocytes Pct Auto 0.3 % (0.0-0.5); Lymphocytes Absolute Auto 0.6 10^3/uL (1.2-3.8); Mean Corpuscular HGB Conc 36.3 g/dL (29.9-35.2); Mean Corpuscular Hemoglobin 30.2 pg (25.9-34.0); Mean Corpuscular Volume 83.1 fL (80.0-94.0); Platelet Count 345 10^3/uL (150-450); Red Blood Count 5.37 10^6/uL (4.70-6.10); White Blood Count 13.0 10^3/uL (4.0-11.0)
[2024-12-05] MEDS: 0.9 % SODIUM CHLORIDE 1,000 ML 999 ML IV (15:36)
[2024-12-05] MEDS: KETOROLAC TROMETHAMINE 30 MG/ML VIAL 15 MG IVP (15:37)
[2024-12-05 15:44] LABS: Alanine Aminotransferase 35 U/L (16-63); Alkaline Phosphatase 114 U/L (46-116); Anion Gap 10.1; Aspartate Amino Transferase 19 U/L (15-37); Blood Urea Nitrogen 10.0 mg/dL (7.0-18.0); Calcium 9.0 mg/dL (8.5-10.1); Carbon Dioxide 26.5 mmol/L (21.0-32.0); Chloride 103 mmol/L (98-107); Estimated GFR (African America >60 (>=60 mL/min/1.73m^2); Estimated GFR (Non-African Ame >60 (>=60 mL/min/1.73m^2); Glucose 98 mg/dL (74-106); Potassium 3.6 mmol/L (3.5-5.1); Sodium 136 mmol/L (136-145); Total Protein 8.5 g/dL (6.4-8.2)
[2024-12-05 15:45] LABS: Albumin Globulin Ratio 0.9; Albumin Level 4.1 g/dL (3.4-5.0); Globulin 4.4 g/dL
--- NOTE | 2024-12-05 16:16 | ED_ITS ---
HPI HPI - General Adult General Chief complaint: Abdominal Pain Stated complaint: ABDOMINAL POAIN Time Seen by Provider: 12/05/24 15:07 Source: patient Mode of arrival: walk-in Limitations: no limitations History of Present Illness HPI narrative: 19-year-old male presents with epigastric abdominal pain since this morning and a known history of gastritis and duodenitis. He had a similar episode in May 2024 where he had a CT at that time also. He denies taking NSAIDS or drinking alcohol. He does smoke marijuana, no other drugs.. He reports taking Pepcid at home without symptom relief. He denies vomiting or changes in bowel habits but endorses mild nausea. Related Data Previous Rx's ?Medication ?Instructions ?Recorded pantoprazole 40 mg tablet,delayed 40 mg PO DAILY 4 wee jean-claude #28 tabs 12/05/24 release (Protonix) Allergies Allergy/AdvReac Type Severity Reaction Status Date / Time No Known Drug Allergies Allergy Verified 09/22/24 20:41 Opioid HPI Opioid Management Most Recent Opioid Data: Last Pain Scale 3 Today, 16:40 Last ED Pain Assessment Today, 15:24 Last MAR Pain Assessment Today, 15:37 PFSH PFSH Social History Little interest or pleasure in doing things: not at all Feeling down, depressed, or hopeless: not at all Exam Narrative Exam Narrative: * General: Alert and oriented, no acute distress. * Vital Signs: Stable; afebrile. * HEENT: Normocephalic, atraumatic; oropharynx clear. * Cardiovascular: Regular rate and rhythm, no murmurs, rubs, or gallops. * Respiratory: Clear to auscultation bilaterally, no distress. * Abdomen: Soft, non-distended. Tenderness to palpation in the epigastric region. No rebound, guarding, or rigidity. Bowel sounds present and normal. * Skin: No rash, diaphoresis, or jaundice. * Neuro: Alert, no focal deficits. * Psych: Appropriate affect, cooperative. Constitutional Vital Signs, click to edit/add: Last Vital Signs Temp 98.2 F 12/05/24 14:12 Pulse 75 12/05/24 14:12 Resp 20 12/05/24 14:12 BP 126/73 12/05/24 16:31 Pulse Ox 98 12/05/24 16:40 O2 Del Method Room Air 12/05/24 15:24 Course Vital Signs Vital signs: Vital Signs Temperature 98.2 F 12/05/24 14:12 Pulse Rate 75 12/05/24 14:12 Respiratory Rate 20 12/05/24 14:12 Blood Pressure 138/95 H 12/05/24 14:12 Pulse Oximetry 100 12/05/24 14:12 Oxygen Delivery Method Room Air 12/05/24 14:12 Temperature 98.2 F 12/05/24 14:12 Pulse Rate 75 12/05/24 14:12 Respiratory Rate 20 12/05/24 14:12 Blood Pressure 126/73 12/05/24 16:31 Pulse Oximetry 98 12/05/24 16:40 Oxygen Delivery Method Room Air 12/05/24 15:24 Medical Decision Making MDM Narrative Medical decision making narrative: 19-year-old male presents with epigastric abdominal pain since this morning and a known history of gastritis and duodenitis. He had a similar episode in May 2024 where he had a CT at that time also. He denies taking NSAIDS or drinking alcohol. He does smoke marijuana, no other drugs.. He reports taking Pepcid at home without symptom relief. He denies vomiting or changes in bowel habits but endorses mild nausea. Vitals are stable, physical exam reveals epigastric tenderness without rebound or guarding, and labs are within normal limits. The patient is tolerating oral intake in the ED. Given his clinical stability, normal labs, and absence of concerning features for a surgical abdomen, symptoms are most consistent with gastritis or dyspepsia. He will be discharged with a prescription for Protonix 40 mg daily and provided with strict return precautions for worsening symptoms. A referral to his primary care provider is advised, with consideration for outpatient GI evaluation if symptoms persist or worsen. Lab Data Labs: Lab Results 12/05/24 12/05/24 Range/Units 14:56 15:11 WBC 13.0 H (4.0-11.0) 10^3/uL RBC 5.37 (4.70-6.10) 10^6/uL Hgb 16.2 (14.0-18.0) g/dL Hct 44.6 (42.0-54.0) % MCV 83.1 (80.0-94.0) fL MCH 30.2 (25.9-34.0) pg MCHC 36.3 H (29.9-35.2) g/dL RDW 11.6 (11.0-15.0) % Plt Count 345 (150-450) 10^3/uL MPV 9.4 L (9.5-13.5) fL Neut % (Auto) 87.3 H (43.0-75.0) % Lymph % (Auto) 4.2 L (20.5-60.0) % Mcdonald % (Auto) 7.5 (1.7-12.0) % Eos % (Auto) 0.4 L (0.9-7.0) % Baso % (Auto) 0.3 (0.2-2.0) % Neut # (Auto) 11.3 H (1.4-6.5) 10^3/uL Lymph # (Auto) 0.6 L (1.2-3.8) 10^3/uL Mcdonald # (Auto) 1.0 H (0.3-0.8) 10^3/uL Eos # (Auto) 0.1 (0.0-0.7) 10^3/uL Baso # (Auto) 0.0 (0.0-0.1) 10^3/uL Abs Immat Gran (auto) 0.04 H (0.00-0.03) 10^3/uL Imm/Tot Granulo (auto) 0.3 (0.0-0.5) % Sodium 136 (136-145) mmol/L Potassium 3.6 (3.5-5.1) mmol/L Chloride 103 (98-107) mmol/L Carbon Dioxide 26.5 (21.0-32.0) mmol/L Anion Gap 10.1 BUN 10.0 (7.0-18.0) mg/dL Creatinine 0.97 (0.70-1.30) mg/dL Est GFR ( Amer) >60 (>=60 mL/min/1.73m^2) Est GFR (Non-Af Amer) >60 (>=60 mL/min/1.73m^2) BUN/Creatinine Ratio 10.3 Glucose 98 (74-106) mg/dL Calcium 9.0 (8.5-10.1) mg/dL Total Bilirubin 1.1 H (0.2-1.0) mg/dL AST 19 (15-37) U/L ALT 35 (16-63) U/L Alkaline Phosphatase 114 (46-116) U/L Total Protein 8.5 H (6.4-8.2) g/dL Albumin 4.1 (3.4-5.0) g/dL Globulin 4.4 g/dL Albumin/Globulin Ratio 0.9 Urine Color Lt. yellow (YELLOW) Urine Clarity Clear (CLEAR) Urine pH 7.0 (5.0-9.0) Ur Specific [place] 1.020 (1.005-1.025) Urine Protein Negative (NEG/TRACE) mg/dL Urine Glucose (UA) Negative (NEGATIVE) mg/dL Urine Ketones Negative (NEGATIVE) mg/dL Urine Occult Blood Negative (NEGATIVE) Urine Nitrite Negative (NEGATIVE) Urine Bilirubin Negative (NEGATIVE) Urine Urobilinogen 0.2 (0.2-1.0) EU/dL Ur Leukocyte Esterase Negative (NEGATIVE) Urine RBC 0-2 (0-2) #/HPF Urine WBC None seen (NONE SEEN) #/HPF Ur Squamous Epith Cells None seen (NONE/RARE) #/LPF Urine Crystals None seen (None Seen) #/HPF Urine Bacteria None seen (NONE SEEN) #/HPF Urine Casts None seen (NONE SEEN) #/LPF Urine Mucus None seen (NONE SEEN) Discharge Plan Discharge Chief Complaint: Abdominal Pain Clinical Impression: Abdominal pain Patient Disposition: Home, Self-Care Time of Disposition Decision: 16:41 Condition: Good Prescriptions / Home Meds: New pantoprazole [Protonix] 40 mg tablet,delayed release (DR/EC) 40 mg PO DAILY 28 Days Qty: 28 0RF Print Language: Telugu Instructions: Abdominal Pain (ED) Additional Instructions: Commend follow-up with gastroenterology. Please follow-up with your PCP for possible referral. Keep a nonfatty nongreasy diet over the next couple days take the Protonix every day as prescribed. Return with any worsening concerning symptoms. Referrals: Tabby Luong MD [Primary Care Provider, Family Practice] - 1 week Discharge Date/Time: 12/05/24 16:54
[2024-12-05] MEDS: lidocaine HCL 15 ML, MAG HYDROX/ALUMINUM HYD/SIMETH 30 ML, HYOSCYAMINE SULFATE 0.25 MG PO (16:51)
== END 2024-12-05 16:54 | disposition home or self-care (01) ==
PROVIDERS: Physician Assistant; Student in an Organized Health Care Education/Training Program; Emergency Provider Family Medicine; PCP Family Medicine
DX: R10.13 Epigastric pain (principal)
CPT/HCPCS: 36415; 80053; 81001; 84703; 85025; 99284; J1885; J2405